=== PATIENT | female | born 1985 | race Caucasian/White ===

== ENCOUNTER 2017-02-20 17:11 | Emergency (ER) | payer BC ==
[~2017-02-20] VITALS: Ht 170.2 cm; Wt 59.1 kg
[2017-02-20] MEDS ORDERED: TUMS500C PO (17:25)
[2017-02-20] MEDS ORDERED: WELLTAB38 PO (17:25)
[2017-02-20] MEDS ORDERED: TOPA100T12 PO (17:25)
[2017-02-20 18:02] LABS: BASO % 0.3 % (0.0-1.0); EOS # 0.1 10^3/uL (0.0-0.50); EOS % 1.1 % (0.0-3.0); IMMATURE GRANULOCYTE % 0.3 % (0-0); LYMPH # 1.8 10^3/uL (1.5-4.5); LYMPH % 27.4 % (24.0-44.0); MEAN CORPUSCULAR HEMOGLOBIN 30.1 pg (27.0-33.0); MEAN CORPUSCULAR HGB CONC 33.5 g/dl (32.0-36.5); MEAN CORPUSCULAR VOLUME 89.8 fl (80.0-96.0); MONO # 0.3 10^3/uL (0.0-0.8); MONO % 5.1 % (0.0-5.0); NEUTROPHILS # 4.3 10^3/uL (1.8-7.7); NEUTROPHILS % 65.8 % (36.0-66.0); PLATELET COUNT, AUTOMATED 354 10^3/uL (150-450); RED CELL DISTRIBUTION WIDTH 13.1 % (11.5-14.5); WHITE BLOOD COUNT 6.5 10^3/uL (4.0-10.0)
[2017-02-20 18:18] LABS: CONTROL LINE HCG INT CTR LINE PRESENT
[2017-02-20 18:27] LABS: ALBUMIN 4.2 GM/DL (3.2-5.2); ALBUMIN/GLOBULIN RATIO 1.14 (1.00-1.93); ALKALINE PHOSPHATASE 64 U/L (45-117); ALT/SGPT 26 U/L (12-78); ANION GAP 7 MEQ/L (8-16); AST/SGOT 13 U/L (15-37); BILIRUBIN,DIRECT < 0.1 MG/DL (0.0-0.2); BILIRUBIN,TOTAL 0.4 MG/DL (0.2-1.0); BLOOD UREA NITROGEN 7 MG/DL (7-18); CALCIUM LEVEL 8.9 MG/DL (8.5-10.1); CARBON DIOXIDE LEVEL 25 MEQ/L (21-32); CHLORIDE LEVEL 109 MEQ/L (98-107); CREATININE FOR GFR 0.69 MG/DL (0.55-1.02); GLOMERULAR FILTRATION RATE > 60.0 (>60); GLUCOSE, FASTING 101 MG/DL (70-105); POTASSIUM SERUM 3.6 MEQ/L (3.5-5.1); SODIUM LEVEL 141 MEQ/L (136-145); TOTAL PROTEIN 7.9 GM/DL (6.4-8.2)
[2017-02-20] MEDS ORDERED: NS 1,000 ML IV ONE (18:30)
[2017-02-20] MEDS ORDERED: ONDANSETRON 4MG/2ML VIAL (J2405) IV ONE ×2 (18:30→19:30)
[2017-02-20] MEDS ORDERED: MORPHINE 4 MG/ML 1ML SYRINGE IV ONE ×2 (18:30→19:30)
[2017-02-20] MEDS ORDERED: ISOVUE-370 76% 100ML VIAL (Q9967) As Ordered ONE (18:42)
[2017-02-20] MEDS ORDERED: ZOFR4TAB3 PO (20:07)
[2017-02-20 20:14] VITALS: BP 123/79
--- NOTE | 2017-02-21 03:21 | REP ---
Clinical: Right lower quadrant pain. Technique: Axial contrast enhanced images from the lung bases to the pubic symphysis using 100 ml Isovue 370 intravenous contrast material with coronal and sagittal re-formations. Findings: Lung bases are clear. Visualized heart and pericardium normal. Liver, spleen, pancreas, bilateral adrenal glands and kidneys are normal. The patient is status post cholecystectomy. A mild enterocolitis predominantly involving the ascending and transverse colon cannot be excluded and should be correlated with clinical examination. There is no evidence for bowel obstruction or perforation. No acute inflammatory changes to the right lower quadrant to suggest acute appendicitis. Pelvis demonstrates normal bladder and age-appropriate uterus/adnexa. No pelvic fluid or ascites. No free air. No retroperitoneal or intraperitoneal adenopathy. Abdominal aorta and vasculature appears normal. Surrounding musculoskeletal structures are intact. Impression: 1. Cannot exclude a mild enterocolitis predominantly involving the ascending and transverse colon. 2. No further acute abdominopelvic pathology appreciated. Signed by Benson Campoverde MD 02/21/2017 03:12 A
== END 2017-02-20 20:18 | disposition home or self-care (01) ==
LOC: M ED 17:11
DX: R10.31 Right lower quadrant pain (principal); R11.2 Nausea with vomiting, unspecified; R19.7 Diarrhea, unspecified; N80.9 Endometriosis, unspecified; R56.9 Unspecified convulsions; Z79.899 Other long term (current) drug therapy; Z88.8 Allergy status to other drugs, medicaments and biological substances
CPT/HCPCS: 74177; 80048; 80076; 81001; 81025; 83690; 84703; 85025; 96361; 96375; 96376; 99284; J2405; Q9967